=== PATIENT | female | born 1945 | race Caucasian/White ===

== ENCOUNTER 2016-03-25 10:20 | Outpatient (CLI) | payer MEDICARE, OTHER | END 2016-03-25 10:21 | disposition home or self-care (01) | DX: Z12.31 Encounter for screening mammogram for malignant neoplasm of breast (principal) ==

== ENCOUNTER 2017-06-15 14:24 | Outpatient (CLI) | payer MEDICARE ==
--- NOTE | 2017-06-30 10:27 | Mammography Report ---
DIGITAL SCREENING MAMMOGRAM: 06/15/2017 CLINICAL INDICATION: A 72-year-old with family history of breast cancer for screening. COMPARISON: 03/2016, 02/2015, 01/2015, 12/2013, 12/2012, 12/2011, 12/2010, 2009. TECHNIQUE: Routine CC, laterally exaggerated CC, and MLO projections were obtained of the breasts. FINDINGS: The breasts demonstrate scattered fibroglandular densities bilaterally. In the left upper inner posterior breast, there is a possible nodule. Further evaluation with spot compression views and possible ultrasound is recommended. No mammographically suspicious findings are appreciated in the right breast. IMPRESSION: INCOMPLETE EXAMINATION. RECOMMENDATION: Additional evaluation of the left breast as above. BIRADS CATEGORY 0 - INCOMPLETE. STANDARD QUALIFYING STATEMENTS: 1. This examination was reviewed with the aid of Computer-Aided Detection (CAD) . 2. A negative or benign imaging report should not delay biopsy if clinically suspicious findings are present. Consider surgical consultation if warranted. More than 5 % of cancers are not identified by imaging. 3. Dense breasts may obscure an underlying neoplasm. TD: 06/30/2017 10:25 SARA
== END 2017-06-15 14:25 | disposition home or self-care (01) ==
LOC: DI.S 14:24
PROVIDERS: ATTEND Physician Assistant
DX: Z12.31 Encounter for screening mammogram for malignant neoplasm of breast (principal); R92.8 Other abnormal and inconclusive findings on diagnostic imaging of breast; Z80.3 Family history of malignant neoplasm of breast
CPT/HCPCS: 77067

== ENCOUNTER 2017-07-28 14:16 | Outpatient (CLI) | payer MEDICARE ==
--- NOTE | 2017-07-28 15:18 | Mammography Report ---
DIAGNOSTIC LEFT MAMMOGRAM: 07/28/2017 CLINICAL INDICATION: Possible nodule on screening. TECHNIQUE: Left true lateral and spot compression views. COMPARISON: 06/15/2017, 03/25/2016, 02/20/2015, 02/05/2015, 01/12/2014, 01/11/2013, 01/08/2012, 12/24/2010, 12/19/2009. FINDINGS: The left breast again demonstrate scattered fibroglandular densities. The density questioned in the left upper posterior breast does not persist on additional compression. No underlying mass lesion or architectural distortion is identified. IMPRESSION: NEGATIVE EXAMINATION. RECOMMENDATION: Routine annual screening unless otherwise clinically indicated. BI-RADS CATEGORY 1 - NEGATIVE. STANDARD QUALIFYING STATEMENTS: 1. This examination was reviewed with the aid of Computer-Aided Detection (CAD). 2. A negative or benign imaging report should not delay biopsy if clinically suspicious findings are present. Consider surgical consultation if warranted. More than 5% of cancers are not identified by imaging. 3. Dense breasts may obscure an underlying neoplasm. TD: 07/28/2017 15:17
== END 2017-07-28 14:17 | disposition home or self-care (01) ==
LOC: DI 14:16
PROVIDERS: ATTEND Physician Assistant
DX: R92.8 Other abnormal and inconclusive findings on diagnostic imaging of breast (principal)

== ENCOUNTER 2018-06-12 09:56 | Emergency (ER) | payer MEDICARE ==
[2018-06-12] MEDS ORDERED: ONDANSETRON 4 MG/2 ML VIAL IVP STA (10:12)
[2018-06-12] MEDS ORDERED: fentaNYL 100 MCG/2 ML VIAL IVP STA (10:12)
[2018-06-12] MEDS ORDERED: SODIUM CHLORIDE 0.9% 1,000 ML IV ONE (10:12)
--- NOTE | 2018-06-12 10:12 | ED Physician Documentation ---
History of Present Illness - Stated complaint Stated Complaint: SIDE/ABD PX - Chief complaint Chief Complaint: General - Additonal information Additional information: 73-year-old female presents the emergency department with complaints of right lower abdomen and back pain over the past several days. The patient reports blood in her urine. The patient reports that the pain migrates between her right back and right lower abdomen. No triggering factors. Vicodin helps take the edge off. This is associated with nausea. No vomiting, dysuria or diarrhea. Review of Systems Constitutional: denies: Fever, Fatigue Eyes: denies: Discharge Ears: denies: Ear pain Nose: denies: Congestion Cardiac: denies: Chest pain / pressure Respiratory: denies: Dyspnea GI: reports: Abdominal Pain, Nausea. denies: Vomiting, Diarrhea : reports: Hematuria. denies: Dysuria, Incontinent Skin: denies: Rash Musculoskeletal: denies: Neck pain Neurologic: denies: Generalized weakness PD PAST MEDICAL HISTORY - Present Medications Home Medications: Ambulatory Orders Medication Instructions Recorded Confirmed Hydrocodone/Acetaminophen [Vicodin 06/12/18 Es 7.5-300 mg Tablet] Ondansetron HCl [Zofran] 4 mg PO Q6HR PRN #30 tablet 06/12/18 Oxycodone HCl/Acetaminophen 1 each PO Q6H PRN #14 tablet 06/12/18 [Percocet 5-325 mg Tablet] - Allergies Allergies/Adverse Reactions: Allergies Allergy/AdvReac Type Severity Reaction Status Date / Time No Known Drug Allergies Allergy Verified 06/12/18 10:06 PD ED PE NORMAL - General General: Alert and oriented X 3, No acute distress - HEENT HEENT: Atraumatic, PERRL, EOMI, Ears normal - Cardiac Cardiac: RRR, Strong equal pulses - Respiratory Respiratory: No respiratory distress, Clear bilaterally - Abdomen Abdomen: Soft, Non distended, Other (Tender palpation in the right lower abdomen and right flank) - Back Back: Other (Right flank tenderness) - Derm Derm: Normal color - Extremities Extremities: No deformity, No edema - Neuro Neuro: Alert and oriented X 3, Normal speech - Psych Psych: Normal affect Results - Vitals Vitals: Vital Signs - 24 hr 06/12/18 06/12/18 06/12/18 10:03 10:46 11:59 Temperature 36.5 C Heart Rate 87 62 Respiratory 14 18 18 Rate Blood Pressure 186/83 H 160/75 H O2 Saturation 96 99 06/12/18 13:27 Temperature Heart Rate 65 Respiratory 18 Rate Blood Pressure 158/81 H O2 Saturation 97 Oxygen O2 Source Room air - Labs Labs: Laboratory Tests 06/12/18 06/12/18 06/12/18 10:29 10:29 12:00 WBC 4.1 L RBC 4.07 L Hgb 13.0 Hct 38.8 MCV 95.2 MCH 32.0 H MCHC 33.6 RDW 13.3 Plt Count 247 MPV 7.3 L Neut # (Auto) 2.7 Lymph # (Auto) 0.8 L [place] # (Auto) 0.5 Eos # (Auto) 0.0 Baso # (Auto) 0.0 Absolute Nucleated RBC 0.00 Nucleated RBC % 0.0 Sodium 130 L Potassium 3.6 Chloride 93 L Carbon Dioxide 26 Anion Gap 11.0 BUN 8 Creatinine 0.7 Estimated GFR (MDRD) 82 L Glucose 118 H Calcium 9.4 Total Bilirubin 1.1 H AST 30 ALT 19 Alkaline Phosphatase 62 Total Protein 7.3 Albumin 4.4 Globulin 2.9 Albumin/Globulin Ratio 1.5 Lipase 45 Urine Color LIGHT YELLOW Urine Clarity CLEAR Urine pH 6.0 Ur Specific [place] <=1.005 Urine Protein NEGATIVE Urine Glucose (UA) NEGATIVE Urine Ketones 15 H Urine Occult Blood NEGATIVE Urine Nitrite NEGATIVE Urine Bilirubin NEGATIVE Urine Urobilinogen 0.2 (NORMAL) Ur Leukocyte Esterase NEGATIVE Ur Microscopic Review NOT INDICATED Urine Culture Comments NOT INDICATED - Rads (name of study) CT abd/pelvis Radiology: Final report received, See rad report (1. No evidence of acute infectious or inflammatory process in the abdomen or pelvis. There are staple lines at the cecal base, which may represent ) PD MEDICAL DECISION MAKING - ED course ED course: Unfortunately, our facility is unable to perform an MRCP today because We do not have a scada technician to perform the study The case was discussed with the books salesperson on-call at [facility] to determine the urgency for the MRCP. The patient's clinical presentation, lab work and the books salesperson independently reviewed the CT scan. Since the patient's pain does not necessarily correlate with the findings and her liver function tests are unremarkable he recommends that this can be done as an outpatient study. He does recommend getting an ultrasound done in the emergency department. I discussed the findings and plan with the patient, the patient understands. The patient however does not want to wait to have an ultrasound performed in the emergency department and would like to be discharged home. The patient would like to have the MRCP and ultrasound performed as an outpatient. I also re commended having the follow-up chest CT for the incidental finding of the pulmonary nodule. I advised the patient to return to the emergency department immediately for any worsening or any concerns. Departure - Departure Disposition: Home, Self Care Clinical Impression: Lesion of pancreas, Pulmonary nodule, Abnormal CT of the abdomen Abdominal pain Qualifiers: Abdominal location: unspecified location Qualified Code(s): R10.9 - Unspecified abdominal pain Condition: Good Instructions: ED Abdominal Pain Unkn Cause Follow-Up: Renetta Diaz PA [Primary Care Provider] - Within 3 Days (Please ask your primary care to arrange for an MRCP with and without IV contrast to further assess the lesion seen on your pancreas and the dilated hepa tic ducts Please ask your primary to arrange for an outpatient ultrasound to evaluate your gallbladder, since you were unable to stay in the emergency department for a study Please also ask your primary care to repeat a chest CT in 12 months to follow-up on the pulmonary nodule seen on the CT scan Also, you may need a referral to the books salesperson if your abdominal pain continues without a diagnosis.) Prescriptions: Ondansetron HCl [Zofran] 4 mg PO Q6HR PRN #30 tablet PRN Reason: Nausea / Vomiting Oxycodone HCl/Acetaminophen [Percocet 5-325 mg Tablet] 1 each PO Q6H PRN #14 tablet PRN Reason: pain Comments: Please return to the emergency department for worsening symptoms or any concerns
[2018-06-12 10:44] LABS: BASOPHILS % (AUTO) 0.6 %; EOSINOPHILS % (AUTO) 0.3 %; LYMPHOCYTES # (AUTO) 0.8 10^3/uL (1.5-3.5); MEAN CORPUSCULAR HGB CONC 33.6 g/dL (32.0-36.0); MEAN CORPUSCULAR VOLUME 95.2 fL (81.0-99.0); MEAN PLATELET VOLUME 7.3 fL (7.9-10.8); MONOCYTES # (AUTO) 0.5 10^3/uL (0.0-1.0); MONOCYTES % (AUTO) 12.7 %; NEUTROPHILS # (AUTO) 2.7 10^3/uL (1.5-6.6); NEUTROPHILS % (AUTO) 66.4 %; PLT - PLATELET COUNT 247 10^3/uL (130-450); RED BLOOD COUNT 4.07 10^6/uL (4.20-5.40); RED CELL DISTRIBUTION WIDTH 13.3 % (12.0-15.0); WHITE BLOOD COUNT 4.1 x10^3/uL (4.8-10.8)
[2018-06-12 10:49] LABS: ALBUMIN 4.4 g/dL (3.2-5.5); ALBUMIN/GLOBULIN RATIO 1.5 (1.0-2.2); BILIRUBIN,TOTAL 1.1 mg/dL (0.2-1.0); CALCIUM 9.4 mg/dL (8.5-10.3); CREATININE 0.7 mg/dL (0.4-1.0); TOTAL PROTEIN 7.3 g/dL (6.7-8.2)
[2018-06-12] MEDS ORDERED: IOPAMIDOL-300 100 ML VIAL ONE (11:03)
[2018-06-12] MEDS ORDERED: IOPAMIDOL-300 100 ML VIAL IVP ONE (11:30)
[2018-06-12 12:06] LABS: BILIRUBIN,URINE NEGATIVE (NEGATIVE); GLUCOSE, URINE (UA) NEGATIVE (NEGATIVE); KETONES,URINE (UA) 15 mg/dL (NEGATIVE); LEUKOCYTE ESTERASE, URINE NEGATIVE (NEGATIVE); NITRITE,URINE NEGATIVE (NEGATIVE); OCCULT BLOOD,URINE NEGATIVE (NEGATIVE); PROTEIN,URINE NEGATIVE (NEGATIVE); UROBILINOGEN,URINE 0.2 (NORMAL) E.U./dL (NORMAL)
[2018-06-12 12:07] LABS: CLARITY,URINE CLEAR (CLEAR)
--- NOTE | 2018-06-12 12:45 | CT Report ---
Reason: RLQ pain Procedure Date: 06/12/2018 Accession Number: [id number] / [id number] Procedure: CT - Abdomen/Pelvis W CPT Code: FULL RESULT: EXAM: CT ABDOMEN AND PELVIS EXAM DATE: 06/12/2018 11:30 AM. CLINICAL HISTORY: RLQ pain. COMPARISONS: None. TECHNIQUE: Routine helical CT imaging was performed through the abdomen and pelvis. IV contrast: 100 cc Isovue 300. Enteric contrast: No. Reconstructions: Coronal and sagittal. In accordance with CT protocol optimization, one or more of the following dose reduction techniques were utilized for this exam: automated exposure control, adjustment of mA and/or KV based on patient size, or use of iterative reconstructive technique. FINDINGS: Lung Bases: There are 2 mm nodules in the right middle lobe and lingula (series 4, images 1 and 4). Lung bases are otherwise clear. Liver: There is a 1.4 cm cyst in segment 8 (series 4, image 15). This cyst may have slight complexity with internal septations. Focal fat deposition is present in segment 4B. Gallbladder/Bile Ducts: There is motion artifact at the level of the gallbladder. No gallstones or definite gallbladder wall thickening. Common bile duct is dilated at 1.4 cm (series 6, image 13). There is slight prominence of the central intrahepatic bile ducts. The duct appears to taper distally. Spleen: Within normal limits. Pancreas: Main pancreatic duct is mildly dilated in the head, measuring 5 mm (series 6, image 12). However, no significant upstream dilation is demonstrated. There is a 6 mm hypoattenuating lesion in the proximal pancreatic body (series 7, image 34). This demonstrates possible slight complexity with internal septation or nodule (series 7, image 35). There appeared to be 3 mm hypoattenuating foci in the pancreatic body (series 4, image 27). Adrenal Glands: No nodules. Kidneys: There is a parapelvic cyst in the interpolar region of the left kidney, measuring up to 2.2 cm (series 4, image 27). Additional subcentimeter hypoattenuating foci are present in the left kidney, too small to characterize. No hydronephrosis. Peritoneal Cavity/Bowel: There is no evidence of bowel obstruction or definite bowel inflammation. There appears to be iker at the cecal base, suggesting previous appendectomy. There is diffuse colonic diverticulosis, moderate-severe in the sigmoid colon. No evidence for acute diverticulitis. Pelvic Organs: Urinary bladder is unremarkable. Uterus and adnexal structures are unremarkable in CT appearance. There is no pelvic adenopathy or free fluid. Vasculature: There is mild aortic atherosclerosis. No aortic aneurysm. Bones: Multilevel degenerative changes are present in the spine. No suspicious osseous lesion. Other: No retroperitoneal adenopathy. IMPRESSION: 1. No evidence of acute infectious or inflammatory process in the abdomen or pelvis. There are staple lines at the cecal base, which may represent sequela of previous appendectomy. 2. Dilation of the common bile duct and mild prominence of the central intrahepatic ducts. Although this could represent normal variant configuration, biliary obstruction cannot be excluded. Suggest correlation with serum bilirubin. If there is evidence of cholestasis, MRCP could be performed for further evaluation. 3. Multiple small hypoattenuating foci in the pancreas, including a 6 mm focus in the proximal body, which has possible mild complexity. These are suspected to represent small cystic pancreatic lesions. Given possible mild complexity of the largest lesion, suggest further evaluation with MRCP without and with IV contrast. 4. Subcentimeter pulmonary nodules in the lung bases. If patients is at high risk for lung cancer, optional follow-up chest CT may be considered in 12 months. In low risk patients, no further follow-up is required. RADIA
[2018-06-12 15:59] VITALS: BP 155/80
== END 2018-06-12 16:13 | disposition home or self-care (01) ==
LOC: ED 09:56
DX: R10.31 Right lower quadrant pain (principal); R93.5 Abnormal findings on diagnostic imaging of other abdominal regions, including retroperitoneum; R85.9 Unspecified abnormal finding in specimens from digestive organs and abdominal cavity; R91.8 Other nonspecific abnormal finding of lung field
CPT/HCPCS: 36415; 74177; 80053; 81003; 83690; 85025; 96361; 96374; 99283; 99284; Q9967; 81001; 87086

== ENCOUNTER 2018-06-14 13:24 | Outpatient (CLI) | payer MEDICARE ==
[2018-06-14] MEDS ORDERED: GADOBUTROL 10 MMOL/10 ML VIAL ONE (13:57)
[2018-06-14] MEDS ORDERED: GADOBUTROL 10 MMOL/10 ML VIAL IVP ONE (15:30)
--- NOTE | 2018-06-14 16:00 | MRI Report ---
Reason: ABNORMAL CT, ABDOMINAL PAIN INCREASING Procedure Date: 06/14/2018 Accession Number: [id number] / [id number] Procedure: MRI - MRCP W/WO CPT Code: FULL RESULT: EXAM: MR ABDOMEN WITH AND WITHOUT CONTRAST EXAM DATE: 06/14/2018 02:24 PM. CLINICAL HISTORY: Generalized abdominal pain. Abnormal CT. COMPARISON: ABDOMEN/PELVIS W/ 06/12/2018 11:17 AM. TECHNIQUE: Multiplanar breath-hold T1, T2, and DWI sequences obtained through the abdomen on an MR scanner. Images obtained before and after administration of 6 mL Gadavist intravenous contrast. FINDINGS: Lung Bases: Unremarkable. Liver: The liver has normal size, morphology and signal. No evidence of solid mass dilatation. A simple 2.0 cm cyst is seen in segment 4A, benign. Gallbladder: The gallbladder is partially distended and appears normal with no wall thickening or stone. Bile ducts: There is no intrahepatic biliary dilatation. There is mild prominence of the extrahepatic bile ducts. The common bile duct measures up to 12 mm but tapers relatively smoothly distally with no strictures, stones, or masses identified. Pancreas: As before, there are a few scattered subcentimeter hyperintense T2 foci seen in the pancreatic tail region (image 9-11, series 701) with possible communication with the main pancreatic duct. Largest focus measures 5 mm. No enhancement is seen in association. The main pancreatic duct itself is normal in caliber and tapers smoothly distally. No solid mass, peripancreatic fluid collection. Spleen: The spleen appears normal. Kidneys and Adrenals: The kidneys appear normal with no mass or hydronephrosis. There are a few small cysts in the kidneys. The adrenals appear normal. Bowel: The small bowel and colon appear normal with no inflammation or obstruction. Retroperitoneum: The retroperitoneal structures appear normal with no mass or lymphadenopathy. Bones: Minor scoliosis and diffuse degenerative changes are seen in the lower spine. IMPRESSION: 1. Tiny subcentimeter simple appearing cysts seen in the pancreatic tail similar to the recent CT imaging. No other pancreatic abnormality is demonstrated. Follow-up to assess for long-term stability could be considered q1 year x5 and if stable then q2 years x 2. Dilated extrahepatic bile ducts without underlying strictures, stones, or masses. Gallbladder appears normal. Findings may represent chronic/senescent changes. 3. Small simple scattered cysts seen in the liver and kidneys. RADIA
== END 2018-06-14 13:25 | disposition home or self-care (01) ==
LOC: DI 13:24
PROVIDERS: ATTEND Internal Medicine
DX: K86.2 Cyst of pancreas (principal); K76.89 Other specified diseases of liver; Q61.02 Congenital multiple renal cysts
CPT/HCPCS: 74183; A9585

== ENCOUNTER 2018-08-31 16:18 | Outpatient (CLI) | payer MEDICARE ==
--- NOTE | 2018-09-01 08:39 | Mammography Report ---
Reason: SCREENING MAMMO Procedure Date: 08/31/2018 Accession Number: [id number] / [id number] Procedure: YAYO - Screening Mammo w/Javan CPT Code: FULL RESULT: EXAM: Screening Mammo w/Javan DATE: 08/31/2018 4:49 PM CLINICAL HISTORY: Screening TECHNIQUE: (B) - Bilateral CC and MLO views were obtained. In addition 2-D and 3-D mammography was performed. COMPARISON: 06/15/2017, 03/25/2016 PARENCHYMAL PATTERN: (A) - The breasts demonstrate scattered fibroglandular densities bilaterally. FINDINGS: There are no suspicious masses, calcifications, or areas of distortion. IMPRESSION: Negative examination. BI-RADS category 1. RECOMMENDATION: (ANNUAL) - Recommend routine annual screening mammography. BI-RADS CATEGORY: (1) - Negative. STANDARD QUALIFYING STATEMENTS: 1. This examination was not reviewed with the aid of Computer-Aided Detection (CAD). 2. A negative or benign imaging report should not preclude biopsy if clinically suspicious findings are present. 3. Dense breasts may obscure an underlying neoplasm. 4. This examination was reviewed without the aid of 3D breast imaging (tomosynthesis).
== END 2018-08-31 16:19 | disposition home or self-care (01) ==
LOC: DI 16:18
DX: Z12.31 Encounter for screening mammogram for malignant neoplasm of breast (principal)
CPT/HCPCS: 77063; 77067

== ENCOUNTER 2020-07-09 13:47 | Outpatient (CLI) | payer MEDICARE ==
--- NOTE | 2020-07-10 09:59 | Mammography Report ---
BILATERAL DIGITAL SCREENING MAMMOGRAM 3D/2D: 07/09/2020 CLINICAL: Family history of breast cancer. Family history of breast cancer. Comparison is made to exams dated: 08/31/2018 mammogram, 07/28/2017 mammogram, and 06/15/2017 mammogram - [facility]. There are scattered fibroglandular elements in both breasts. No significant masses, calcifications, or other findings are seen in either breast. There has been no significant interval change. IMPRESSION: NEGATIVE There is no mammographic evidence of malignancy. A 1 year screening mammogram is recommended. This exam was interpreted at Station ID: [id number]. NOTE: For mammograms, a report in lay terms will be sent to the patient. Approximately 15% of breast malignancies will not be visualized mammographically. In the management of a palpable breast mass, a negative mammogram must not discourage biopsy of a clinically suspicious lesion. Electronically Signed By: Mickey Bhatt M.D. ar/penrad:07/09/2020 14:26:33 ACR BI-RADS Category 1: Negative 3341F PARENCHYMAL PATTERN: (A) - The breast(s) demonstrate(s) scattered fibroglandular densities. BI-RADS CATEGORY: (1) - 1 RECOMMENDATION: (ANNUAL) - Recommend routine annual screening mammography. [id number] 1 year screening LATERALITY: (B)
== END 2020-07-09 13:48 | disposition home or self-care (01) ==
LOC: DI.S 13:47
DX: Z12.31 Encounter for screening mammogram for malignant neoplasm of breast (principal); Z80.3 Family history of malignant neoplasm of breast

== ENCOUNTER 2021-04-08 12:17 | Outpatient (CLI) | payer MEDICARE ==
--- NOTE | 2021-04-09 08:18 | Mammography Report ---
UNILATERAL RIGHT DIGITAL DIAGNOSTIC MAMMOGRAM 3D/2D: 04/08/2021 CLINICAL: Occasional right breast pain. Comparison is made to exams dated: 07/09/2020 mammogram, 08/31/2018 mammogram, 07/28/2017 mammogram, 05/22 mammogram, 03/25/2016 mammogram - [facility], and 02/20/2015 mammogram - [facility]. There are scattered fibroglandular elements in right breast. No significant masses, calcifications, or other findings are seen in the breast. IMPRESSION: NEGATIVE There is no mammographic evidence of malignancy. Return to annual mammogram screening schedule is rec ommended. Future imaging is recommended as follows: 07/10/2021 screening mammogram. This exam was interpreted at Station ID: [id number]. NOTE: For mammograms, a report in lay terms will be sent to the patient. Approximately 15% of breast malignancies will not be visualized mammographically. In the management of a palpable breast mass, a negative mammogram must not discourage biopsy of a clinically suspicious lesion. Electronically Signed By: Lamont Hudson M.D., jr/marsha:04/08/2021 13:10:17 ACR BI-RADS Category 1: Negative 3341F PARENCHYMAL PATTERN: (A) - The breast(s) demonstrate(s) scattered fibroglandular densities. BI-RADS CATEGORY: (1) - 1 Mammogram [id number] return to screening LATERALITY: (B)
== END 2021-04-08 12:18 | disposition home or self-care (01) ==
LOC: DI 12:17
PROVIDERS: ATTEND Nurse Practitioner Family
DX: N64.4 Mastodynia (principal)

== ENCOUNTER 2022-06-04 12:52 | Outpatient (CLI) | payer MEDICARE ==
--- NOTE | 2022-06-05 10:21 | Mammography Report ---
BILATERAL DIGITAL SCREENING MAMMOGRAM 3D/2D: 06/04/2022 CLINICAL: Routine screening. Family history of breast cancer. Comparison is made to exams dated: 04/08/2021 mammogram, 07/09/2020 mammogram, and 08/31/2018 mammogram - [facility]. Both breasts are heterogeneously dense, which may obscure small masses (category c / 51-75% glandular tissue). No significant masses, calcifications, or other findings are seen in either breast. There has been no significant interval change. IMPRESSION: NEGATIVE There is no mammographic evidence of malignancy. A 1 year screening mammogram is recommended. Based on the Tyrer Cuzick model (a risk assessment model) the patients lifetime risk is 5.4% and her 10 year risk is 0.0%. According to the ACR, ACS, and NCCN guidelines, an annual breast MRI exam yifan g with mammogram is recommended if the patients lifetime risk is 20% or greater. This exam was interpreted at Station ID: [id number]. NOTE: For mammograms, a report in lay terms will be sent to the patient. Approximately 15% of breast malignancies will not be visualized mammographically. In the management of a palpable breast mass, a negative mammogram must not discourage biopsy of a clinically suspicious lesion. Electronically Signed By: Axel yeh/marsha:06/04/2022 14:16:10 letter sent: No_Letter ACR BI-RADS Category 1: Negative 3341F PARENCHYMAL PATTERN: (D) - The breast(s) demonstrate(s) heterogeneously dense fibroglandular lai bauman. BI-RADS CATEGORY: (1) - 1 Mammogram [id number] 1 year screening LATERALITY: (B)
== END 2022-06-04 12:53 | disposition home or self-care (01) ==
LOC: DI.S 12:52
PROVIDERS: ATTEND Nurse Practitioner Family
DX: Z12.31 Encounter for screening mammogram for malignant neoplasm of breast (principal); Z80.3 Family history of malignant neoplasm of breast

== ENCOUNTER 2023-06-16 14:46 | Outpatient (CLI) | payer MEDICARE ==
--- NOTE | 2023-06-17 09:53 | Mammography Report ---
BILATERAL DIGITAL SCREENING MAMMOGRAM 3D/2D: 06/16/2023 CLINICAL: Routine screening. Family history of breast cancer. Comparison is made to exams dated: 06/04/2022 mammogram, 04/08/2021 mammogram, and 07/09/2020 mammogram - [facility]. There are scattered areas of fibroglandular density in both breasts (category b / 25%-50% glandular t issue). No significant masses, calcifications, or other findings are seen in either breast. There has been no significant interval change. IMPRESSION: NEGATIVE There is no mammographic evidence of malignancy. A 1 year screening mammogram is recommended. Based on the Tyrer Cuzick model (a risk assessment model) the patient's lifetime risk is 2.8% and her 10 year risk is 0.0%. According to the ACR, ACS, and NCCN guidelines, an annual breast MRI exam yifan g with mammogram is recommended if the patient's lifetime risk is 20% or greater. This exam was interpreted at Station ID: [id number]. NOTE: For mammograms, a report in lay terms will be sent to the patient. Approximately 15% of breast malignancies will not be visualized mammographically. In the management of a palpable breast mass, a negative mammogram must not discourage biopsy of a clinically suspicious lesion. Electronically Signed By: Romario branch/marsha:06/17/2023 08:55:43 letter sent: No_Letter ACR BI-RADS Category 1: Negative 3341F PARENCHYMAL PATTERN: (A) - The breast(s) demonstrate(s) scattered fibroglandular densities. BI-RADS CATEGORY: (1) - 1 RECOMMENDATION: (ANNUAL) - Recommend routine annual screening mammography. [id number] 1 year screening LATERALITY: (B)
== END 2023-06-16 14:47 | disposition home or self-care (01) ==
LOC: DI.S 14:46
PROVIDERS: ATTEND Nurse Practitioner Family
DX: Z12.31 Encounter for screening mammogram for malignant neoplasm of breast (principal); Z80.3 Family history of malignant neoplasm of breast; R92.323 Mammographic fibroglandular density, bilateral breasts